=== PATIENT | male | born 1965 | race African-American/Black ===

== ENCOUNTER 2021-05-27 18:44 | Emergency (ER) | payer BC ==
[2021-05-27 18:54] VITALS: BP 144/69; PULSE 84; TEMP 98.7; BMI 29.2
== END 2021-05-27 22:19 | disposition home or self-care (01) ==
LOC: JER 18:44
DX: U07.1 COVID-19 (principal); J12.82 Pneumonia due to coronavirus disease 2019
CPT/HCPCS: 71045-TC-FY; 99283-25